=== PATIENT | female | born 1985 | race Caucasian/White ===

== ENCOUNTER 2019-06-19 15:14 | Emergency (ER) | payer BC ==
--- NOTE | 2019-06-19 16:21 | CT ---
Exam: Head CT without contrast HISTORY: Fall. Trauma. Pain. COMPARISON: none FINDINGS: Hemorrhage: No intraparenchymal hemorrhage or extra-axial hematoma. Brain parenchyma: Cortical perez-white matter differentiation is preserved. No mass effect or midline shift. Basilar cisterns are patent. Ventricular system: Ventricles and sulci are patent and symmetric. Calvarium: Intact. Sinuses and mastoid air cells: Adequate aeration. IMPRESSION: No intracranial posttraumatic sequelae.
--- NOTE | 2019-06-19 16:29 | CT ---
Exam: Noncontrast facial bone CT HISTORY: Fall. Trauma. Pain FINDINGS: Visualized brain parenchyma is unremarkable There is a right frontal and supraorbital hematoma. There is mild right-sided exophthalmos. Bilateral ocular lenses are appropriately located. Both globes are intact. Retrobulbar fat is preserved. Symmetric attenuation of the optic nerves and ocular rectus muscles. Adequate aeration visualized paranasal sinuses and mastoid air cells Aerodigestive tract is patent. No mucosal abnormality Mildly enlarged right level II lymph node measuring 1.1 x 0.9 cm. Additional scattered nonspecific l ymph nodes are noted. The osseous margins of the orbits are maintained. Zygomatic arch is intact. No maxilla or mandible fracture. Pterygoid plates are intact Coronal reformatted images demonstrate patent bilateral ostiomeatal complexes. Intact nasal septum. IMPRESSION: 1. Right periorbital posttraumatic change with mild right-sided exophthalmos. Correlate clinically. 2. No evidence of a maxillofacial fracture. Transcribed Date/Time: 06/19/2019 4:49 PM
--- NOTE | 2019-06-19 16:29 | CT ---
Exam: CT cervical spine without contrast HISTORY: Patient fell down 2 flights of stairs. Posttraumatic pain. COMPARISON: None FINDINGS: No craniocervical dissociation. Appropriate alignment of the lateral masses of C1 and C2. Intact odon toid process Appropriate alignment of the facets. Straightening of normal cervical lordosis may be due to patient position, muscle spasm or cervical co llar. Current study is not tailored to assess for ligamentous injury. Soft tissue neck structures: No mass, lymphadenopathy or hematoma. No prevertebral soft tissue swelli ng. Upper mediastinum and lung apices: Unremarkable Central spinal canal: Neural foramina and central spinal canal are patent. Evaluation is limited by t echnique Vertebral bodies: Cervical spine vertebral body height is maintained. No fracture. IMPRESSION: 1. No fracture. 2. Straightening of normal cervical lordosis as above. If there is concern for ligamentous injury, co nsider MRI.
[2019-06-19] MEDS ORDERED: HYDROcodone/Acetaminophen 10/325 mg Tablet ONE (17:06)
--- NOTE | 2019-06-19 17:58 | RAD ---
XR Wrist 3 Rt View STANDARD History: Trauma. Pain Comparison: None. Findings: No acute fracture or malalignment. Soft tissues are unremarkable. Impression: No acute fracture or malalignment.
--- NOTE | 2019-06-20 08:52 | RAD ---
RIGHT KNEE 4 VIEWS: HISTORY: Fall, right knee pain. FINDINGS/IMPRESSION: No acute fracture or dislocation is seen. There are 2 screws in the proximal tibia. POS: OFF
--- NOTE | 2019-06-20 09:32 | RAD ---
RIGHT HAND 3 VIEWS: HISTORY: Fall. Pain. FINDINGS: Limited evaluation of the 1st through 5th digits due to persistent flexion. No obvious fractures. IMPRESSION: Limited evaluation due to fingers in flexion. No obvious fractures. Repeat imaging once the patient is able to extend her fingers is recommended. POS: BETTY
== END 2019-06-19 18:05 | disposition home or self-care (01) ==
LOC: ERS 15:14
DX: S06.0X9A Concussion with loss of consciousness of unspecified duration, initial encounter (principal); S63.501A Unspecified sprain of right wrist, initial encounter; S80.00XA Contusion of unspecified knee, initial encounter; S00.81XA Abrasion of other part of head, initial encounter; S30.811A Abrasion of abdominal wall, initial encounter; F41.9 Anxiety disorder, unspecified; F32.9 Major depressive disorder, single episode, unspecified; F43.10 Post-traumatic stress disorder, unspecified; F17.210 Nicotine dependence, cigarettes, uncomplicated; Z79.899 Other long term (current) drug therapy; W10.9XXA Fall (on) (from) unspecified stairs and steps, initial encounter
CPT/HCPCS: 70450; 70486; 72125